=== PATIENT | male | born 1975 | race Caucasian/White ===

== ENCOUNTER → 2019-12-10 | Outpatient (CLI) | payer OTHER ==
[~2019-12-10] MED LIST: ADDERALL 20 MG20 MG PO; PRILOSEC PO; PROPRANOLOL HCL10 MG PO
--- NOTE | 2019-12-10 15:31 | Diagnostic Imaging Report ---
History: Neck and bilateral arm pain Comparison studies: Prior cervical spine CT on 01/12/2017 and cervical spine MRI 12/22/2007 are unavailable on the PACS at the time of dictation. Technique: Sagittal T1, T2 and IR, axial T2 and axial gradient echo Intravenous contrast: None Findings: Alignment: Straightened cervical curvature may be positional. Cervicomedullary junction: No abnormalities. Patent foramen magnum. Soft tissues: No T2 hyperintense inflammatory changes. Spinal cord: Normal in size and signal from the foramen magnum through T1. Vertebrae: No fractures, infection or neoplasm. Degenerative changes: C2-C3: Patent canal and foramina. No disc herniation C3-C4: Patent canal and foramina. No disc herniation. C4-C5: Patent canal. No disc herniation. Mild uncovertebral arthrosis without significant foraminal stenosis. C5-C6: Patent canal and foramina. No disc herniation C6-C7: Small disc bulge does not result in canal stenosis. Patent foramina. C7-T1: Patent canal and foramina. No disc herniation. IMPRESSION: 1. Small disc bulge at C6-C7. 2. Patent spinal canal and foramina. No disc herniation or nerve root impingement. Signed by: Dr. Jorge Nuñez M.D. on 12/10/2019 3:27 PM
--- NOTE | 2019-12-10 15:44 | Diagnostic Imaging Report ---
History: Low back and bilateral leg pain Comparison studies: Lumbar spine MRIs of 05/06/2016 03/28/2009. Technique: Sagittal and axial T2 , sagittal T1 and IR, axial spin density oblique, coronal T2. Intravenous contrast: None Findings: Number of lumbar vertebral bodies: 5. Alignment: String usual cervical lordosis may be positional. No scoliosis. Soft tissues: No T2 hyperintense inflammatory changes. Paraspinal muscles: No signal abnormalities. Well-preserved. No atrophic changes Lower thoracic cord: Normal in signal and morphology. The tip of the conus is at L1-L2. Cauda equina: No masses. No arachnoiditis. Vertebrae: Compression fracture, infection or neoplasm. Incidental small unchanged T1 hyperintense L3 vertebral body hemangioma. No other neoplasm. Degenerative changes: Disc height and disc signal are maintained. No disc herniation. Patent spinal canal and neural foramina. Included sacroiliac joints: No joint effusion or marrow edema. IMPRESSION: 1. No abnormalities in the lumbar spine to account for patient's symptoms of low back and leg pain. 2. Patent spinal canal and foramina. No disc herniation or nerve root impingement. Signed by: Dr. Jorge Nuñez M.D. on 12/10/2019 3:41 PM
== END ==
LOC: MRI 10:57
PROVIDERS: ATTEND Internal Medicine
DX: M50.30 Other cervical disc degeneration, unspecified cervical region (principal); M51.36 Other intervertebral disc degeneration, lumbar region
CPT/HCPCS: 72141; 72148

== ENCOUNTER → 2024-12-17 | Outpatient (REF) | payer OTHER ==
[~2024-12-17] MED LIST changes: +ATIVAN0.5 MG PO; +LOSARTAN POTAS100 MG PO; +MULTI-VITAMIN1 EACH PO; +VITAMIN C1000 MG PO
== END ==
LOC: RESP 11:38 → EDSTATUS 13:00
PROVIDERS: ATTEND Internal Medicine
DX: J20.9 Acute bronchitis, unspecified (principal)
CPT/HCPCS: 71046; 94010; 94727; 94729